=== PATIENT | female | born 1975 | race Caucasian/White ===

== ENCOUNTER 2017-03-10 09:31 | Emergency (ER) | payer BC | END 2017-03-10 12:00 | disposition home or self-care (01) | LOC: ER1 09:31 | DX: L02.214 Cutaneous abscess of groin (principal); L03.314 Cellulitis of groin; Z90.710 Acquired absence of both cervix and uterus; Z90.49 Acquired absence of other specified parts of digestive tract; Z79.899 Other long term (current) drug therapy | CPT/HCPCS: 10061; 87070; 87205; 99283 ==

== ENCOUNTER 2017-03-12 12:40 | Emergency (ER) | payer BC ==
[2017-03-12 13:36] LABS: HEMOGLOBIN 13.1 gm/dl (12.3-15.3); RED BLOOD COUNT 4.64 M/UL (4.00-5.10); WHITE BLOOD COUNT 6.6 K/UL (4.5-11.0)
[2017-03-12 13:57] LABS: BUN/CREATININE RATIO 24 (0-10)
== END 2017-03-12 15:00 | disposition home or self-care (01) ==
LOC: ER1 12:40
PROVIDERS: Emergency Medicine
DX: L02.214 Cutaneous abscess of groin (principal); L03.314 Cellulitis of groin
CPT/HCPCS: 36415; 80053; 83605; 85025; 87040; 96361; 96374; 96375; 99283; J0696; J2405; J7050

== ENCOUNTER 2017-03-13 16:28 | Inpatient (IN) | payer BC ==
[~2017-03-13] VITALS: Ht 167.6 cm; Wt 77.1 kg
[2017-03-13 18:40] LABS: HEMOGLOBIN 13.6 gm/dl (12.3-15.3); RED BLOOD COUNT 4.86 M/UL (4.00-5.10); WHITE BLOOD COUNT 7.9 K/UL (4.5-11.0)
[2017-03-13 18:57] LABS: BUN/CREATININE RATIO 14 (0-10)
[2017-03-14 07:14] LABS: HEMOGLOBIN 11.8 gm/dl (12.3-15.3)
[2017-03-14 07:15] LABS: RED BLOOD COUNT 4.17 M/UL (4.00-5.10); WHITE BLOOD COUNT 3.8 K/UL (4.5-11.0)
[2017-03-14 07:19] LABS: BUN/CREATININE RATIO 10 (0-10)
[2017-03-14] MEDS ORDERED: KEFLEX500 MG PO (10:54)
[2017-03-14] MEDS ORDERED: LORTAB 5-325 M1 EACH PO (10:55)
[2017-03-14] MEDS ORDERED: BACTRIM DS TAB1 EACH PO (10:56)
[2017-03-14] MEDS ORDERED: PRISTIQ 50 MG T50 MG PO (10:57)
[2017-03-14] MEDS ORDERED: WELLBUTRIN SR150 M1 PO (10:58)
[2017-03-14] MEDS ORDERED: HYDROXYZINE HCL25 MG PO (11:02)
[2017-03-14] MEDS ORDERED: ESTRADIOL TRAN1 EAC1 TOP (11:02)
[2017-03-14] MEDS ORDERED: IBUPROFEN800 MG PO (11:03)
[2017-03-14] MEDS ORDERED: VITAMIN D250000 UNIT PO (11:04)
[2017-03-14] MEDS ORDERED: BIOTIN1 M1 PO (11:05)
[2017-03-15 04:52] LABS: HEMOGLOBIN 11.1 gm/dl (12.3-15.3); RED BLOOD COUNT 4.05 M/UL (4.00-5.10); WHITE BLOOD COUNT 2.9 K/UL (4.5-11.0)
[2017-03-15 05:16] LABS: BUN/CREATININE RATIO 10 (0-10)
[2017-03-17 16:33] LABS: HEMOGLOBIN 11.8 gm/dl (12.3-15.3); RED BLOOD COUNT 4.25 M/UL (4.00-5.10); WHITE BLOOD COUNT 4.1 K/UL (4.5-11.0)
[2017-03-17 16:59] LABS: BUN/CREATININE RATIO 4 (0-10)
[2017-03-18] MEDS ORDERED: BACTRIM DS TAB1 EACH PO (11:58)
== END 2017-03-18 13:10 | disposition home or self-care (01) | DRG 581 ==
LOC: ER1 16:28 → ZEROF 23:17 → MED SURG 4 23:17
PROVIDERS: Emergency Medicine; Internal Medicine Infectious Disease; Surgery; ADMIT Internal Medicine
PROC: 0H97XZZ Drainage of Abdomen Skin, External Approach (ICD-10-PCS; 2017-03-13)
PROC: 0J9C0ZZ Drainage of Pelvic Region Subcutaneous Tissue and Fascia, Open Approach (ICD-10-PCS; principal; 2017-03-15 13:15)
DX: L02.818 Cutaneous abscess of other sites (principal); L03.314 Cellulitis of groin; F41.9 Anxiety disorder, unspecified; G47.00 Insomnia, unspecified; D70.2 Other drug-induced agranulocytosis; T50.905A Adverse effect of unspecified drugs, medicaments and biological substances, initial encounter; Y92.230 Patient room in hospital as the place of occurrence of the external cause; E87.6 Hypokalemia; B95.62 Methicillin resistant Staphylococcus aureus infection as the cause of diseases classified elsewhere; Z90.710 Acquired absence of both cervix and uterus; Z83.3 Family history of diabetes mellitus
CPT/HCPCS: 10061; 36415; 80048; 80053; 80202; 83690; 83735; 85025; 85027; 87040; 87070; 87077; 87186; 87205; 96365; 96366; 96367; 96375; 99284; J0696; J1100; J2250; J2270; J2405; J2543; J3010; J3370; J7030; J7050; J7070; J7120; Q0177

== ENCOUNTER 2017-03-19 18:04 | Emergency (ER) | payer BC ==
[~2017-03-19 18:04] MED LIST: BACTRIM DS TAB1 EACH PO; BIOTIN1 M1 PO; ESTRADIOL TRAN1 EAC1 TOP; HYDROXYZINE HCL25 MG PO; IBUPROFEN800 MG PO; KEFLEX500 MG PO; LORTAB 5-325 M1 EACH PO; PRISTIQ 50 MG T50 MG PO; VITAMIN D250000 UNIT PO; WELLBUTRIN SR150 M1 PO
[2017-03-19 19:30] LABS: RED BLOOD COUNT 4.67 M/UL (4.00-5.10); WHITE BLOOD COUNT 4.3 K/UL (4.5-11.0)
[2017-03-19 19:47] LABS: BUN/CREATININE RATIO 14 (0-10)
== END 2017-03-19 20:35 | disposition home or self-care (01) ==
LOC: ER1 18:04
PROVIDERS: Specialist/Technologist Athletic Trainer
DX: J95.89 Other postprocedural complications and disorders of respiratory system, not elsewhere classified (principal); J98.11 Atelectasis; Y83.8 Other surgical procedures as the cause of abnormal reaction of the patient, or of later complication, without mention of misadventure at the time of the procedure
CPT/HCPCS: 36415; 71020; 80048; 85025; 85379; 93005; 96372; 99285

== ENCOUNTER → 2021-11-13 | Outpatient (CLI) | payer BC ==
[~2021-11-13] MED LIST changes: +BUPROPION XL150 MG PO; +CARDIZEM 30MG T30 MG PO; +CIPRO500 MG PO; +CYANOCOBAL1000 MCG/1 INJ; +ESTRADIOL; -ESTRADIOL TRAN1 EAC1 TOP; +ESTRADIOL1 EAC4 TD; +FLAGYL500 MG PO; +FLORASTOR250 MG PO; +HYDROCHLOROTHIA25 MG PO; +LEVOCETIRIZINE D5 MG PO; +PROTONIX 40 MG40 M1 PO; +TIZANIDINE HCL4 MG PO; +ZESTRIL20 MG PO; +ZOFRAN4 MG PO
[2021-11-13 09:24] LABS: HEMOGLOBIN 14.1 gm/dl (12.3-15.3); RED BLOOD COUNT 5.04 M/UL (4.00-5.10); WHITE BLOOD COUNT 4.6 K/UL (4.5-11.0)
[2021-11-13 09:46] LABS: BUN/CREATININE RATIO 21 (0-10)
== END ==
LOC: RAD 08:57
PROVIDERS: Physician Assistant
DX: R14.0 Abdominal distension (gaseous) (principal); Z98.84 Bariatric surgery status; K44.9 Diaphragmatic hernia without obstruction or gangrene
CPT/HCPCS: 36415; 74246; 74248; 80053; 83690; 85025